=== PATIENT | male | born 1975 | race Caucasian/White ===

== ENCOUNTER 2023-12-17 22:46 | Emergency (ER) | payer OTHER, SELFPAY ==
[2023-12-17 22:50] VITALS: BP 174/110
[2023-12-17 23:24] LABS: Urine Albumin Trace (Neg - Trace); Urine Bilirubin Negative (Negative); Urine Character Slightly Cloudy (Clear); Urine Color Yellow; Urine Glucose Negative (Negative); Urine Ketone Negative (Negative); Urine Leukocyte Negative (Negative); Urine Nitrite Negative (Negative); Urine Occult Blood 4+ (Negative); Urine Specific Gravity 1.015 (<1.030); Urine Urobilinogen Negative (Neg - 1+); Urine pH 6.5 (5.0-9.0)
[2023-12-17 23:25] VITALS: BMI 27.8
--- NOTE | 2023-12-17 23:25 | ED.GENMED ---
History of Present Illness
General
Chief Complaint: Urinary Symptoms
Source: patient
Exam Limitations: none
Time Seen by Provider: 12/17/23 23:08
History of Present Illness
History of Present Illness:
48-year-old male presents with urinary symptoms including increased frequency and dysuria. He denies fevers or chills. He has a history of kidney stones. He has been having the symptoms over the past 5 weeks. At the onset of the symptoms he was
diagnosed with a 5 mm stone in the right mid to distal ureter. He does not recall passing the stone however symptoms went away at 1 point. He has been seen by urology. His symptoms have returned. No vomiting. He notes normal bowel movements.
No other complaints at this time
Past History
Past History
ED Past Medical History: Other
ED Past Surgical History: Other
Social History
Tobacco: Non-smoker
Alcohol: Occasional
Drug: None
Personal:
Living: with family
Phy Exam
Physical Exam
Physical Exam:
General: Well-appearing male no acute respiratory distress
HEENT: Normocephalic atraumatic
Heart: Regular rate and rhythm no murmurs
Lungs: Clear no wheeze
Abdomen soft nontender nondistended guarding rebound normal bowel sounds
Extremities: No cyanosis or edema
Course
Orders/Labs/Results
Orders:
Orders
12/17/23 23:16
Urinalysis Reflex To Culture Urgent
Date Specimen was Collected: 12/17/23
Time Specimen was Collected: 23:11
Urine Microscopic Reflex Cult Urgent
12/17/23 23:24
CT Abd/pel Without Iv Or Oral Urgent
Comment:
Reason For Exam: right flank pain
12/17/23 23:36
Complete Blood Count/With Diff Urgent
Comprehensive Metabolic Panel Urgent
12/18/23 00:01
Add On - Microbiology Urgent
Comments:: urine sample in Lab
Tests Added?: Chlamydia/GC by PCR
Abnormal Lab Results
12/17/23 12/17/23
23:16 23:36
RBC 4.55 L 10^6/uL
(4.70-6.10)
Absolute Monos (auto) 1.1 H 10^3/uL
(0.1-0.6)
Monocytes % 10.7 H %
(1.7-9.3)
BUN 28 H mg/dl
(9-20)
Creatinine 1.5 H mg/dL
(0.7-1.3)
Ur Occult Blood Reflex 4+ A
(Negative)
Urine RBC >100 A /HPF
(0-2)
Urine Bacteria (Reflex) Few A
(Negative)
12/17/23 23:36
12/17/23 23:36
Vital Signs
Initial and Last Documented VS:
Initial Vital Signs
Temp Pulse Resp BP Pulse Ox
97.7 F 87 19 174/110 98
12/17/23 22:50 12/17/23 22:50 12/17/23 22:50 12/17/23 22:50 12/17/23 22:50
Last Documented Vital Signs
Temp Pulse Resp BP Pulse Ox
98.6 F 78 20 150/90 98
12/18/23 01:11 12/18/23 01:11 12/18/23 01:11 12/18/23 01:11 12/18/23 01:11
MDM/Problems Addressed
Differential Diagnosis Includes:
Urinary frequency. Consider UTI or cystitis. Will check urinalysis as well as gonorrhea chlamydia. Patient notes he is monogamous with his . The situation will be unlikely. Reported history of recently diagnosed kidney stone but no
noticeable passage of the stone.
CT pending. Check labs.
*Critical Care Note
Total Time (30-74mins, 75-104mins- exclusive of procedures): Not Applicable
Update Note
Update Note:
Workup demonstrates 6 mm stone in the distal right ureter with mild hydronephrosis. Urinalysis without obvious sign of infection there are some bacteria in it. Patient has been working on the stone for over 5 weeks. No fevers. He notes
discomfort but it is manageable with his inrd-kpi-oeljbsf medications been using. Discussed options for treatment at this time. Offered admission secondary to the chronicity of this problem and not passing. Discussed role for discharge and close
urology follow-up. He decided on discharge. Will cover with [facility]. He will follow-up with his urologist for further evaluation
ED Attending Note
-
Portions of this chart may have been created with voice recognition software.� Occasional wrong word or��sound alike� substitutions may have occurred due to the inherent limitations of voice recognition software.
Discharge Plan
Departure
Patient Disposition: Home (Routine Discharge)
Date of Disposition: 12/18/23
Time of Disposition: 01:13
Patient with high blood pressure during this ER visit?: No
Discharge Problem:
Kidney stone
Instructions: Kidney Stone, Adult ED
Prescriptions:
New
cefdinir 300 mg capsule
300 mg PO BID Qty: 14 0RF
No Action
rosuvastatin [Crestor] 10 MG tablet
10 mg PO DAILY
losartan 50 MG tablet
50 mg PO DAILY
amlodipine [Norvasc] 2.5 MG tablet
2.5 mg PO DAILY
ibuprofen 600 MG tablet
600 mg PO Q6H Qty: 20 0RF
Referrals:
Marcus Pathak DO [Family Provider] -
Activity Restrictions/Additional Instructions:
Continue drinking plenty fluids and using Flomax. Use antibiotic as directed. Please return here for worsening symptoms. Follow-up with urology for further evaluation
Interventions
Interventions:
*Risk Screen - Suicide Last Done: 12/17/23 22:48
*General Assessment Last Done: 12/17/23 22:50
*Neglect/Abuse Screening Last Done: 12/17/23 22:50
ED- Fall Risk Assessment Last Done: 12/17/23 23:26
*ED COVID-19 Vaccine History Last Done: 12/17/23 22:50
ED-Male Genitourinary Assessment Last Done: 12/17/23 23:26
Discharge Date and Time
Print Language: GREEK
[2023-12-17 23:36] LABS: Urine Squamous Cell 0-2 /LPF (Few)
[2023-12-17 23:37] LABS: Urine Bacteria Few (Negative); Urine Red Blood Cell >100 /HPF (0-2)
[2023-12-17 23:47] LABS: % Basophils 0.8 % (0-2); % Eosinophils 2.5 % (0-6); % Immature Granulocytes 0.4 % (0-0.5); % Lymphocytes 21.6 % (20.5-51.1); % Monocytes 10.7 % (1.7-9.3); Absolute Basophils 0.1 10^3/uL (0-0.2); Absolute Eosinophils 0.3 10^3/uL (0-0.7); Absolute Lymphocytes 2.2 10^3/uL (1.2-3.4); Absolute Monocytes 1.1 10^3/uL (0.1-0.6); Absolute Neutrophils 6.5 10^3/uL (1.4-6.5); Hemoglobin 13.8 g/dL (13.0-18.0); Mean Corp Hgb Conc. 35.4 g/dL (33.0-37.0); Mean Corpuscular Hgb 30.3 pg (27.0-31.0); Mean Corpuscular Volume 85.7 fL (80.0-94.0); Mean Platelet Volume 10.1 fL (7.4-10.4); Nucleated Red Blood Cells % 0 % (-); Platelet Count 253 10^3/uL (130-400); Red Blood Cell Count 4.55 10^6/uL (4.70-6.10); Red Cell Dist. Width 12.6 % (11.5-14.5); White Blood Cell Count 10.1 10^3/uL (4.8-10.8)
[2023-12-17 23:59] LABS: ALT (SGPT) 27 U/L (0-50); AST (SGOT) 28 U/L (17-59); Albumin 4.7 g/dl (3.5-5.0); Alkaline Phosphatase 68 U/L (38-126); Blood Urea Nitrogen 28 mg/dl (9-20); Calcium 9.7 mg/dl (8.4-10.2); Carbon Dioxide 25 mmol/L (22-30); Chloride 103 mmol/L (98-107); Estimated Creatinine Clearance 58 ml/min; Glucose 97 mg/dl (70-99); Potassium 3.7 mmol/L (3.5-5.1); Sodium 141 mmol/L (135-145); Total Bilirubin 0.7 mg/dl (0.2-1.3); Total Protein 7.3 g/dl (6.3-8.2); eGFR 57.79
[2023-12-18 00:25] VITALS: BP 143/88
[2023-12-18 01:11] VITALS: BP 150/90
== END 2023-12-18 01:24 | disposition home or self-care (01) ==
LOC: EMR 22:46
PROVIDERS: Physician Assistant; EMERGENCY PHYSICIAN Emergency Medicine; FAMILY PHYSICIAN Family Medicine
DX: N13.2 Hydronephrosis with renal and ureteral calculous obstruction (principal); Z87.442 Personal history of urinary calculi
CPT/HCPCS: 99284; 74176; 80053; 81003; 81015; 85025; 87491; 87591

== ENCOUNTER 2023-12-27 06:32 | Day surgery (SDC) | payer OTHER, SELFPAY ==
--- NOTE | 2023-12-26 10:08 | PTCARENOTE ---
patients 12/16 Creat- 1.5; GFR- 57.9- Eileen & Shruti @ Dr. Day office notified
[2023-12-27 15:16] VITALS: BMI 26.8
[2023-12-27 15:17] VITALS: BP 132/86; BMI 26.8
[2023-12-27] MEDS: NORMOSOL-R/PLASMALYTE-A 1000 IV (15:30)
[2023-12-27 17:33] VITALS: BP 132/86; BP 134/82
[2023-12-27 17:45] VITALS: BP 132/94
[2023-12-27] MEDS: DETROL LA 4 MG PO (17:57)
[2023-12-27] MEDS: Pyridium 200 MG PO (17:57)
[2023-12-27 18:00] VITALS: BP 138/87
[2023-12-27 18:05] VITALS: BP 138/87
[2023-12-27 18:25] VITALS: BP 143/92
== END 2023-12-27 18:50 | disposition home or self-care (01) ==
LOC: SDS 06:32
PROVIDERS: ATTENDING PHYSICIAN Surgery
DX: N13.2 Hydronephrosis with renal and ureteral calculous obstruction (principal)
CPT/HCPCS: 52351; 74018; 76000; A4300; C1758; C1769; C1894

== ENCOUNTER 2025-01-19 23:55 | Emergency (ER) | payer OTHER, SELFPAY ==
[2025-01-20] VITALS: BMI 31.9
[2025-01-20 00:01] VITALS: BP 141/77
[2025-01-20 00:04] VITALS: BP 141/77
[2025-01-20 00:40] LABS: ALT (SGPT) 20 U/L (0-50); AST (SGOT) 20 U/L (17-59); Albumin 4.0 g/dl (3.5-5.0); Alkaline Phosphatase 74 U/L (38-126); Blood Urea Nitrogen 19 mg/dl (9-20); Calcium 8.6 mg/dl (8.4-10.2); Carbon Dioxide 24 mmol/L (22-30); Chloride 108 mmol/L (98-107); Estimated Creatinine Clearance 97 ml/min; Glucose 160 mg/dl (70-99); Lipase 216 U/L (23-300); Potassium 3.8 mmol/L (3.5-5.1); Sodium 137 mmol/L (135-145); Total Protein 6.7 g/dl (6.3-8.2); eGFR > 60.00
[2025-01-20 00:46] LABS: Troponin I < 0.012 ng/ml
[2025-01-20 01:00] VITALS: BP 117/71
[2025-01-20 01:27] LABS: Hematocrit 41.8 % (39.0-52.0); Hemoglobin 13.9 g/dL (13.0-18.0); Mean Corp Hgb Conc. 33.3 g/dL (33.0-37.0); Mean Corpuscular Volume 91.3 fL (80.0-94.0); Nucleated Red Blood Cells % 0 % (-); Platelet Count 261 10^3/uL (130-400); Red Cell Dist. Width 12.7 % (11.5-14.5)
[2025-01-20 04:00] VITALS: BP 121/84
[2025-01-20 04:33] LABS: Troponin I < 0.012 ng/ml
[2025-01-20 05:00] VITALS: BP 120/87
[2025-01-20 06:00] VITALS: BP 128/95
[2025-01-20] MEDS: MAALOX 50 PO (06:06)
--- NOTE | 2025-01-20 06:08 | ED.GENMED ---
History of Present Illness
General
Chief Complaint: Chest Pain
Source: patient and family
Exam Limitations: none
Time Seen by Provider: 01/19/25 23:58
Nursing documentation reviewed up to this point in time: agreed with
History of Present Illness
History of Present Illness:
Note:
CHIEF COMPLAINT(S)
Chest pain.
HISTORY OF PRESENT ILLNESS
The patient is a 49-year-old male who presented with chest pain. The symptoms began around 10:00 AM. Initially, the patient felt 'weird' and by 10:15 to 10:30 AM, the chest pain became apparent. He described the sensation as if his heart was
'getting out of his chest,' which was intermittent and accompanied by shortness of breath and dizziness. The patient noted a 'choking feeling' and reported feeling tired but not nauseous. He mentioned experiencing anxiety and increased stress,
primarily related to his responsibilities as a father and job. The patient has a history of hypertension, reportedly 'pushing the threshold for years,' but denies regular alcohol intake and significant drug use, with an exception of past use of
certain stimulants, including PSE referred to as pseudoephedrine.
PAST MEDICAL AND SURGICAL HISTORY
The patient reported a history of hypertension.
SOCIAL DETERMINANTS AFFECTING HEALTH
The patient experiences stress related to familial responsibilities and work, mentioning the demanding schedule associated with his children�s activities and his job as a �roster,� contributing to increased anxiety.
FAMILY HISTORY
The patients father had a history of heart issues, requiring heart surgery in his early sixties due to heavy smoking.
REVIEW OF SYSTEMS
- Cardiovascular: Reports chest pain and sensation of heart racing.
- Respiratory: Experiences shortness of breath.
- Neurological: Describes feeling dizzy.
- Psychiatric: Reports anxiety and stress.
PHYSICAL EXAM
General: Alert, no acute distress.
Skin: Warm, dry.
Head: Normocephalic, atraumatic.
Neck: Supple, trachea midline.
Eyes, Ears, Nose, Mouth, and Throat: Oral mucosa moist.
Cardiovascular: Normal peripheral perfusion, no edema.
Respiratory: Respirations are non-labored.
Gastrointestinal: Abdomen nondistended.
Back: Normal range of motion, normal alignment.
Musculoskeletal: Normal range of motion, normal strength.
Neurological: Alert and oriented to person, place, time, and situation, no focal neurological deficit observed.
Psychiatric: Cooperative, appropriate mood and affect.
PLAN
The plan includes conducting serial troponin tests to assess for cardiac ischemia and further testing as indicated by the results.
DIFFERENTIAL DIAGNOSIS
The Differential Diagnosis includes, in no particular order and is not limited to:
1. Acute coronary syndrome
2. Panic attack or anxiety disorder
3. Atypical angina
4. Pulmonary embolism
5. Costochondritis
6. Aortic dissection
7. Gastroesophageal reflux disease
8. Pericarditis
9. Hypertensive crisis
10. Cardiac arrhythmia
Disposition:
SUMMARY OF ENCOUNTER
The patient, a 49-year-old male, presented to the emergency department with complaints of chest pain and a 'weird' feeling in his chest. Upon evaluation, the chest pain resolved. Serial troponin tests were conducted, both of which returned negative,
indicating no cardiac ischemia. The patient reported feeling much better during the visit, and his symptoms improved significantly.
DISPOSITION
Discharge.
ASSESSMENT
The patients chest pain was assessed and the improvement in symptoms, along with negative troponin results, suggested a low likelihood of acute coronary syndrome.
PLAN
The plan included discharging the patient with instructions to follow up with a chest pain hotline for further evaluation and monitoring as necessary.
PATIENT EDUCATION AND COUNSELING
The patient was informed about the negative troponin results, indicating no immediate cardiac threat. He was counseled on recognizing warning signs that would require immediate medical attention, such as recurring chest pain or worsening symptoms.
FOLLOW-UP INSTRUCTIONS
The patient was instructed to contact the chest pain follow-up hotline for ongoing monitoring and evaluation.
MEDICATION RECONCILIATION
No new medications were prescribed during the visit.
MEDICAL DECISION MAKING
-Complexity of Data Reviewed: Chronic conditions affecting care [history of hypertension]. Differential diagnoses considered include acute coronary syndrome, panic attack or anxiety disorder, atypical angina, and costochondritis among others.
-Data:
Category 1
Troponin tests were reviewed and found to be negative.
-Risk:
Consideration of Admission/Observation: Escalation of care including admission/observation was considered given the complexity and risk of the patients presenting complaint, exam findings, and his underlying condition. However, ultimately, the
patient was deemed safe for outpatient management with close follow-up. Reasoning: Work-up was reassuring, showing no acute life-threatening issues, and the patient�s symptoms were controlled upon reevaluation. The patient agreed with discharge and
was deemed reliable for follow-up care.
DIAGNOSIS
1. Chest Pain, Unspecified (ICD-10: R07.9)
2. Hypertension (ICD-10: I10)
Past History
Past History
ED Past Medical History: Other
ED Past Surgical History: Other
Social History
Tobacco: Non-smoker
Alcohol: Occasional
Drug: None
Personal:
Living: with family
Phy Exam
Physical Exam
Physical Exam:
.
Scores
Heart Score for Chest Pain Patients
STEMI patient?: No
History: Slightly or Non-Suspicious
ECG: Normal
Age: >45 - <65 years
Risk Factors: 1 or 2 Risk Factors
Troponin: </= Normal Limit
Heart Score for Chest Pain Patients: 2
Heart Score Risk: 2.5% MACE over next 6 weeks
Course
Orders/Labs/Results
Orders:
Orders
01/19/25 23:56
EKG- Treatment ONCE
Complete Blood Count/With Diff Urgent
Comprehensive Metabolic Panel Urgent
Lipase Urgent
Troponin I Urgent
01/20/25
Electrocardiogram (*1) Stat
Comment: DONE
01/20/25 01:19
EKG- Treatment ONCE
01/20/25 01:45
CR Chest - 2 Views Urgent
Comment:
Reason For Exam: cp
01/20/25 03:56
Troponin I Urgent
01/20/25 04:00
Electrocardiogram (*1) Urgent
Reason for Study: Chest Pain
01/20/25 05:58
Mag Hydrox/Al Hydrox/Simeth [Maalox] 30 ml Phenobarb/Hyoscy/Atropine/Scop [] 10 ml Viscous Lidocaine 2% [Xylocaine Viscous Cup] 10 ml PO NOW
01/20/25 06:04
Mag Hydrox/Al Hydrox/Simeth [Maalox] 30 ml .ROUTE .STK-MED ONE
Phenobarb/Hyoscy/Atropine/Scop [] 10 ml .ROUTE .STK-MED ONE
01/20/25 06:05
Viscous Lidocaine 2% [Xylocaine Viscous Cup] 15 ml .ROUTE .STK-MED ONE
Abnormal Lab Results
01/20/25
00:11
RBC 4.58 L 10^6/uL
(4.70-6.10)
Abs Immat Gran (auto) 0.1 H 10^3/uL
(0-0.05)
Immature Gran % 1.0 H %
(0-0.5)
Chloride 108 H mmol/L
(98-107)
Glucose 160 H mg/dl
(70-99)
01/20/25 00:11
01/20/25 00:11
Vital Signs
Initial and Last Documented VS:
Initial Vital Signs
Temp Pulse Resp BP Pulse Ox
98.3 F 85 14 141/77 98
01/20/25 00:01 01/20/25 00:01 01/20/25 00:01 01/20/25 00:01 01/20/25 00:01
Last Documented Vital Signs
Temp Pulse Resp BP Pulse Ox
98.3 F 76 17 128/95 97
01/20/25 00:01 01/20/25 06:00 01/20/25 06:00 01/20/25 06:00 01/20/25 06:10
*Radiology
Radiology exam reviewed: radiology read reviewed
*Pulse Oximetry
SaO2: 97
Oxygen Mode of Delivery: Room air
Patient hypoxic: no
*Critical Care Note
Total Time (30-74mins, 75-104mins- exclusive of procedures): Not Applicable
ED Attending Note
-
Portions of this chart may have been created with voice recognition software.� Occasional wrong word or��sound alike� substitutions may have occurred due to the inherent limitations of voice recognition software.
Discharge Plan
Departure
Patient Disposition: Home (Routine Discharge)
Date of Disposition: 01/20/25
Time of Disposition: 06:10
Patient with high blood pressure during this ER visit?: Yes
Discharge Problem:
Chest pain
Instructions: Chest Pain [facility] Follow Up, BLOOD PRESSURE
Prescriptions:
No Action
losartan 50 MG tablet
50 mg PO HS
amlodipine [Norvasc] 2.5 MG tablet
2.5 mg PO HS
ibuprofen 600 MG tablet
600 mg PO Q6H Qty: 20 0RF
rosuvastatin 10 mg Tablet
10 mg PO HS
multivitamin Tablet
1 tab PO DAILY
tamsulosin [Flomax] 0.4 mg Capsule
0.4 mg PO HS
cetirizine [Zyrtec] 10 mg Tablet
10 mg PO DAILY PRN (Reason: allergies)
alprazolam [Xanax] 0.5 mg Tablet
0.5 mg PO BID PRN (Reason: anxiety)
Referrals:
[facility] [Provider Group]
Marcus Pahtak DO [Family Provider, Family Practice]
Activity Restrictions/Additional Instructions:
Thank You for choosing [facility].
It was a pleasure meeting you and taking part in your care. We hope for your continued healing and wellness.
Please read discharge instructions in their entirety. However, they are for general education and may not describe your exact diagnosis at discharge. Information on your ER visit and medical conditions were discussed with you along with appropriate
follow up information...
If indicated, please take your medications as instructed and indicated on discharge paperwork.
Please schedule a follow up appointment as directed. Call to schedule an appointment
Please return to the emergency department with ANY change in, persisting, or worsening of symptoms. If any of your symptoms do not improve, or persist, or become more severe within 6-12 hours, please return to the emergency department for further
care.
Please return to the emergency department if you develop a headache, neck pain/stiffness, fever greater than 100.4F, chest pain, shortness of breath, persistent nausea, vomiting, slurred speech, difficulty walking, numbness/tingling, weakness, signs
of infection or any other symptoms that are worrisome to you.
If you have any questions or concerns please do not hesitate to call the Hospital at .
Interventions
Interventions:
*Risk Screen - Suicide Last Done: 01/20/25 00:08
*General Assessment Last Done: 01/20/25 00:08
*Neglect/Abuse Screening Last Done: 01/20/25 00:08
*ED- Fall Risk Assessment Last Done: 01/20/25 00:08
*ED COVID-19 Vaccine History Last Done: 01/20/25 00:08
*ED Influenza Vaccine History Last Done: 01/20/25 00:08
*Nursing Disposition Last Done: 01/20/25 06:16
ED- Cardiac Assessment Last Done: 01/20/25 00:10
Discharge Date and Time
Discharge Date/Time: 01/20/25 06:18
Print Language: TURKMEN
== END 2025-01-20 06:18 | disposition home or self-care (01) ==
LOC: EMR 23:55
PROVIDERS: EMERGENCY PHYSICIAN Student in an Organized Health Care Education/Training Program; FAMILY PHYSICIAN Family Medicine
DX: R07.9 Chest pain, unspecified (principal); I10 Essential (primary) hypertension; Z63.8 Other specified problems related to primary support group; Z56.3 Stressful work schedule
CPT/HCPCS: 99284; 71046; 80053; 83690; 84484; 85025; 93005

== ENCOUNTER → 2025-03-19 14:10 | Outpatient (REF) | payer OTHER, SELFPAY | LOC: RCS 14:10 | PROVIDERS: ATTENDING PHYSICIAN Internal Medicine Cardiovascular Disease; FAMILY PHYSICIAN Family Medicine | DX: R07.9 Chest pain, unspecified (principal) | CPT/HCPCS: 93017; 93350 ==